=== PATIENT | female | born 1940 | race Caucasian/White ===

== ENCOUNTER → 2019-09-20 | Outpatient (CLI) | payer MEDICARE, OTHER ==
[2015-05-30 13:05] VITALS: BP 161/112
[~2019-09-20] MED LIST: AMLO5TAB10 PO; ASPI-630 PO; CYAN10002 IM; FENO145T PO; FISH OIL OMEGA1 EACH PO; LEVO100T5 PO; LISI-334 PO; LOVA20TA2 PO; OMEP40CA45 PO; TRIA1CAP3 PO
--- NOTE | 2019-09-21 03:26 | RAD ---
Left hip 2 views. HISTORY: Left hip pain, chronic, arthritis AP view was taken of the pelvis with a lateral view of the left hip. There is mild spurring on the femoral head from mild arthritis at the left hip. 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 There is no pelvic fracture. There is no other acute abnormality in the pelvis. There is degenerative change and hypertrophic change in the lumbar spine. There appears to be fusion at L3-4. There are possible calculi at the lower pole of the left kidney. IMPRESSION: 1. Arthritis left hip. 2. Negative pelvis. 3. 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 4. Possible left renal calculus. Electronically signed by: Trevin Wadsworth MD (09/21/2019 3:23 AM) [id number]
== END | disposition home or self-care (01) ==
LOC: PMGORTHO 15:18
PROVIDERS: ATTEND Orthopaedic Surgery Sports Medicine
DX: M47.816 Spondylosis without myelopathy or radiculopathy, lumbar region (principal); M13.852 Other specified arthritis, left hip
CPT/HCPCS: 73501